=== PATIENT | female | born 1950 | race Caucasian/White ===

== ENCOUNTER 2016-10-16 12:38 | Emergency (ER) | payer OTHER ==
[~2016-10-16] VITALS: Ht 162.6 cm; Wt 111.1 kg
[~2016-10-16 12:38] MED LIST: ALB5IS NEB; Atorvastatin Calcium PO; BENA20TA4 PO; ESCI10TA PO; FURO40TA4 PO; GABA-498 PO; HYDR-2652 PO; MET50T PO; NOR10T PO; SIMV20TA90 PO
[2016-10-16 13:48] LABS: Basophils # (auto) 0.1 uL; Basophils % (auto) 0.6 % (0.0-2.0); DEFINITIVE VIEW TRANSMISSION; Eosinophils # (auto) 0.1 uL; Eosinophils % (auto) 1.5 % (0.0-7.0); Hematocrit 32.6 % (36.0-46.0); Hemoglobin 10.4 g/dL (12.2-16.2); Lymphocytes # (auto) 0.8 uL; Mean Corpuscular Hemoglobin 25.6 pg (28.0-32.0); Mean Platelet Volume 9.4 fL (7.4-10.4); Monocytes # (auto) 0.9 uL; Monocytes % (auto) 10.3 % (0.0-12.0); Neutrophils # (auto) 6.8 uL; Neutrophils % (auto) 78.6 % (37.0-80.0); Platelet Count (auto) 287 10^3/uL (140-450); Red Cell Distribution Width 17.2 % (11.6-16.0); White Blood Cell 8.6 10^3/uL (4.4-10.8)
[2016-10-16 14:01] LABS: Albumin 3.1 g/dL (3.4-5.0); BUN/Creatinine Ratio 27.9; Bilirubin, Total 0.7 mg/dL (0.2-1.0); Calcium 9.5 mg/dL (8.5-10.1); Magnesium 2.1 mg/dL (1.6-2.6); Potassium 4.5 mmol/L (3.5-5.1); Total Protein 7.2 g/dL (6.4-8.2)
[2016-10-16] MEDS ORDERED: CEPHALEXIN 250 MG CAP PO ONE (17:00)
[2016-10-16] MEDS ORDERED: HYDROcodone-ACET 5/325MG TAB PO ONE (17:00)
[2016-10-16 18:02] VITALS: BP 146/75
== END 2016-10-16 18:34 | disposition home or self-care (01) ==
LOC: ER 12:42
DX: J44.9 Chronic obstructive pulmonary disease, unspecified (principal); E46 Unspecified protein-calorie malnutrition; I48.91 Unspecified atrial fibrillation; I13.0 Hypertensive heart and chronic kidney disease with heart failure and stage 1 through stage 4 chronic kidney disease, or unspecified chronic kidney disease; N18.9 Chronic kidney disease, unspecified; I50.9 Heart failure, unspecified; Z90.49 Acquired absence of other specified parts of digestive tract; Z90.710 Acquired absence of both cervix and uterus; Z90.89 Acquired absence of other organs
CPT/HCPCS: 36415; 71020; 80053; 83735; 84484; 85025; 93005

== ENCOUNTER → 2016-12-17 | Outpatient (CLI) | payer OTHER ==
[2016-12-17 12:20] LABS: Partial Thromboplastin Time 27.5 sec (22.64-33.71)
[2016-12-17 12:39] LABS: INR 1.45 (0.9-1.15); Prothrombin Time 14.9 sec (9.37-12.3)
[2016-12-17 13:00] LABS: BUN/Creatinine Ratio 20.2; Bilirubin, Total 0.8 mg/dL (0.2-1.0); Calcium 9.5 mg/dL (8.5-10.1); Potassium 3.1 mmol/L (3.5-5.1); Total Protein 7.5 g/dL (6.4-8.2); Uric Acid 9.2 mg/dL (2.6-6.0)
== END | disposition home or self-care (01) ==
LOC: LAB 11:21
PROVIDERS: ATTEND Internal Medicine
DX: E11.9 Type 2 diabetes mellitus without complications (principal); I10 Essential (primary) hypertension; M10.9 Gout, unspecified; M06.9 Rheumatoid arthritis, unspecified
CPT/HCPCS: 36415; 80053; 83036; 84439; 84443; 84550; 85610; 85730; 86141

== ENCOUNTER → 2016-12-24 | Outpatient (CLI) | payer OTHER ==
[2016-12-24 10:47] LABS: Partial Thromboplastin Time 27.5 sec (22.64-33.71)
[2016-12-24 11:02] LABS: INR 2.04 (0.9-1.15)
== END | disposition home or self-care (01) ==
LOC: LAB 09:33
PROVIDERS: ATTEND Internal Medicine
DX: I48.91 Unspecified atrial fibrillation (principal); E78.5 Hyperlipidemia, unspecified
CPT/HCPCS: 36415; 84132; 85610; 85730

== ENCOUNTER 2017-01-03 00:46 | Inpatient (IN) | payer OTHER ==
[2017-01-03] VITALS (10 sets, daily range): BP systolic 51–111; BP diastolic 25–72
[~2017-01-03] VITALS: Ht 165.1 cm; Wt 124.7 kg
[2017-01-03] MEDS ORDERED: NITROGLYCERIN 0.4 MG SL TAB SL ONE (01:15)
[2017-01-03] MEDS ORDERED: FUROSEMIDE 40 MG/4 ML VIAL IV ONE ×3 (01:15→06:30)
[2017-01-03 01:38] LABS: Urine RBC None Seen /hpf (0 - 4)
[2017-01-03 01:49] LABS: Urine Bilirubin Negative (Negative); Urine Blood Negative /uL (Negative); Urine Color Yellow (Yellow); Urine Glucose Normal (Normal); Urine Ketone Negative (Negative); Urine Urobilinogen Normal (Negative)
[2017-01-03 01:51] LABS: Urine Nitrite POSITIVE (Negative)
[2017-01-03 02:07] LABS: DEFINITIVE VIEW TRANSMISSION; Mean Corpuscular Hemoglobin 23.2 pg (28.0-32.0); Mean Corpuscular Hgb Conc. 31.1 g/dL (32.0-36.0); Mean Corpuscular Volume 74.5 fL (80.0-100.0); Mean Platelet Volume 10.1 fL (7.4-10.4); Platelet Count (auto) 317 10^3/uL (140-450); Red Cell Distribution Width 17.3 % (11.6-16.0); SUSPECT VIEW TRANSMISSION; White Blood Cell 12.5 10^3/uL (4.4-10.8)
[2017-01-03 02:15] LABS: Partial Thromboplastin Time 29.2 sec (22.64-33.71)
[2017-01-03 02:19] LABS: INR 2.41 (0.9-1.15); Prothrombin Time 24.8 sec (9.37-12.3)
[2017-01-03 02:21] LABS: Anion Gap 12 (5-15); Aspartate Aminotransferase 25 U/L (15-37); BUN/Creatinine Ratio 18.9; Blood Urea Nitrogen 25 mg/dL (7-18); Calcium 8.3 mg/dL (8.5-10.1); Carbon Dioxide 28 mmol/L (21-32); Chloride 103 mmol/L (98-107); GFR African American 52 mL/min; GFR Non-African American 43 mL/min; Glucose 140 mg/dL (74-106); Potassium 3.3 mmol/L (3.5-5.1); Sodium 143 mmol/L (136-145)
[2017-01-03 02:22] LABS: Lactic Acid 3.5 mmol/L (0.4-2.0)
[2017-01-03 02:28] LABS: Metamyelocytes % 0; Myelocytes % 0; Promyelocytes % 0; Reactive Lymphocytes 0
[2017-01-03 02:30] LABS: Alkaline Phosphatase 179 U/L (45-117); Bilirubin, Total 0.7 mg/dL (0.2-1.0); REFLEX LACTIC ACID YES OR NO YES; Total Protein 6.9 g/dL (6.4-8.2)
[2017-01-03 02:50] LABS: Hypersegmented Neutrophils Present
[2017-01-03 02:51] LABS: Anisocytosis Slight; Microcytosis Moderate; Ovalocytes MODERATE; Platelet Estimate Adequate
[2017-01-03 02:57] LABS: Temperature: 21.6 C (20.0-25.0)
[2017-01-03] MEDS ORDERED: cefTRIAXone 1GM/50ML D5W 50 ML IV ONE (04:00)
[2017-01-03] MEDS ORDERED: ONDANSETRON HCL 4 MG/2 ML VIAL IV ONE (04:00)
[2017-01-03 04:01] LABS: Lactic Acid 4.9 mmol/L (0.4-2.0)
[2017-01-03 04:04] LABS: REFLEX LACTIC ACID YES OR NO NO
[2017-01-03] MEDS ORDERED: LORazepam 2MG/ML-1ML VIAL IV ONE (04:45)
[2017-01-03] MEDS ORDERED: SUCCINYLCHOLINE CHLORIDE 20 MG/ML 10ML VIAL IV ONE ×2 (06:06→06:23)
[2017-01-03] MEDS ORDERED: ETOMIDATE (2MG/ML) 20ML VIAL IV ONE ×2 (06:06→06:23)
[2017-01-03] MEDS: MIDAZOLAM DRIP 100 mg/100mL NS 100 ML IV SCH ×2 (06:20→23:55)
[2017-01-03] MEDS ORDERED: MIDAZOLAM DRIP 100 mg/100mL NS 100 ML IV ONE (06:27)
[2017-01-03] MEDS ORDERED: MIDAZOLAM DRIP 100 mg/100mL NS 100 ML IV SCH (06:27)
[2017-01-03] MEDS ORDERED: MORPHINE SULF INJ 2 MG/ML SYRINGE 1ML IV PRN ×3 (06:30)
[2017-01-03] MEDS ORDERED: LORazepam 2MG/ML-1ML VIAL IV PRN (06:30)
[2017-01-03] MEDS ORDERED: ACETAMINOPHEN 325 MG TAB PO PRN (06:30)
[2017-01-03] MEDS ORDERED: ONDANSETRON HCL 4 MG/2 ML VIAL IV PRN (06:30)
[2017-01-03] MEDS ORDERED: NITROGLYCERIN 0.4 MG SL TAB SL PRN (06:30)
[2017-01-03] MEDS ORDERED: DEXTROSE (50%) 50ML SYRG IV PRN (06:30)
[2017-01-03] MEDS ORDERED: NOREPINEPHRINE BITARTRATE 250 ML IV ONE (06:57)
[2017-01-03] MEDS: NOREPINEPHRINE BITARTRATE 250 ML IV SCH ×2 (07:10→16:30)
[2017-01-03] MEDS ORDERED: methylPREDNISolone SOD SUCC 125 MG/2 ML VL IV ONE (08:15)
[2017-01-03] MEDS ORDERED: diphenhdrAMINE HCL 50 MG/1 ML VL IV ONE (08:15)
[2017-01-03] MEDS ORDERED: cefTRIAXone 1GM/50ML D5W 50 ML IV SCH (09:00)
[2017-01-03] MEDS ORDERED: SODIUM CHLORIDE 0.9% 1,000 ML IV ONE ×2 (09:45→22:30)
[2017-01-03] MEDS ORDERED: PIPERACILLIN-TAZOB 3.375GM 100 ML IV ONE (09:45)
[2017-01-03] MEDS: POTASSIUM CHL 20MEQ/100ML 100 ML IV SCH ×2 (09:51→11:30)
[2017-01-03] MEDS ORDERED: PANTOPRAZOLE SODIUM 40 MG/10 ML VIAL IV SCH ×2 (10:00)
[2017-01-03] MEDS ORDERED: FAMOTIDINE (10MG/ML) 2ML VL IV SCH (10:00)
[2017-01-03] MEDS ORDERED: ENOXAPARIN SOD 40 MG/0.4 ML SYRINGE SC SCH (10:00)
[2017-01-03] MEDS: fentaNYL Drip 2500mCg/250mlNS 250 ML IV SCH (10:04)
[2017-01-03] MEDS: ALBUMIN 25% 100 ML IV SCH ×4 (10:06→21:32)
[2017-01-03 10:08] LABS: Magnesium 1.7 mg/dL (1.6-2.6); Phosphorus 2.8 mg/dL (2.5-4.90)
[2017-01-03] MEDS ORDERED: ACETAMINOPHEN 650 mg PER 20 mL UD ONE (10:12)
[2017-01-03] MEDS: AZITHROMYCIN 500MG/D5W 250ML 250 ML IV SCH (10:14)
[2017-01-03] MEDS ORDERED: PHENYLEPHRINE INJ 40 MG in SODIUM CHL 0.9% 250 ML IV SCH (10:30)
[2017-01-03] MEDS: PHENYLEPHRINE INJ 20 MG in SODIUM CHL 0.9% 250 ML IV SCH ×2 (11:15→16:40)
[2017-01-03] MEDS: LINEZOLID 600MG/300ML 300 ML IV SCH ×2 (12:00→21:42)
[2017-01-03] MEDS: PIPERACILLIN-TAZOB 3.375GM 100 ML IV SCH ×2 (12:27→19:03)
[2017-01-03] MEDS: ACCU-CHEK COMFORT CURVE STRIP VI SCH ×2 (12:35→18:54)
[2017-01-03] MEDS: InsuLIN REG 1unit/0.01ml Soln (100units/ml) SC SCH ×2 (12:41→18:54)
[2017-01-03 17:42] LABS: BUN/Creatinine Ratio 12.5; Calcium 7.8 mg/dL (8.5-10.1); Potassium 4.2 mmol/L (3.5-5.1)
[2017-01-03] MEDS ORDERED: BUMETANIDE (0.25 MG/ML) INJ 10ML IV ONE (17:45)
[2017-01-03] MEDS: IPRATROPIUM BROM 0.5 MG/2.5ML INH SOL NEB SCH ×2 (18:00→21:52)
[2017-01-03] MEDS ORDERED: PHENYLEPHRINE IV 250 ML IV ONE (21:01)
[2017-01-03] MEDS: PANTOPRAZOLE SODIUM 40 MG/10 ML VIAL IV SCH (21:42)
[2017-01-03] MEDS ORDERED: VASOPRESSIN 20 UNIT/ML ONE ×2 (23:24→23:36)
[2017-01-03] MEDS: VASOPRESSIN 50 UNITS in SODIUM CHL 0.9% 247.5 ML IV SCH (23:50)
[2017-01-04] VITALS (8 sets, daily range): BP systolic 88–122; BP diastolic 43–83
[2017-01-04] MEDS: MIDAZOLAM DRIP 100 mg/100mL NS 100 ML IV SCH ×5 (00:25→04:18)
[2017-01-04] MEDS: ACCU-CHEK COMFORT CURVE STRIP VI SCH ×2 (00:27→06:15)
[2017-01-04] MEDS: PIPERACILLIN-TAZOB 3.375GM 100 ML IV SCH ×2 (00:29→06:44)
[2017-01-04] MEDS: VASOPRESSIN 50 UNITS in SODIUM CHL 0.9% 247.5 ML IV SCH ×4 (00:31→07:00)
[2017-01-04] MEDS: HYDROCORTISONE SOD SUCC 100 MG/2ML INJ VIAL IV SCH ×2 (00:49→06:15)
[2017-01-04] MEDS: InsuLIN REG 1unit/0.01ml Soln (100units/ml) SC SCH ×2 (00:56→06:23)
[2017-01-04] MEDS ORDERED: EPINEPHrine HCL INJECTION 4 MG in D5W 5% 250 ML IV SCH (01:15)
[2017-01-04] MEDS: IPRATROPIUM BROM 0.5 MG/2.5ML INH SOL NEB SCH ×3 (02:00→10:00)
[2017-01-04] MEDS: PHENYLEPHRINE INJ 20 MG in SODIUM CHL 0.9% 250 ML IV SCH ×2 (03:07→05:03)
[2017-01-04] MEDS: NOREPINEPHRINE BITARTRATE 250 ML IV SCH ×2 (03:20→07:00)
[2017-01-04] MEDS: fentaNYL Drip 2500mCg/250mlNS 250 ML IV SCH (03:43)
[2017-01-04] MEDS ORDERED: PHENYLEPHRINE IV 250 ML IV ONE (04:43)
[2017-01-04] MEDS ORDERED: EPINEPHrine HCL 250 ML IV ONE (05:48)
[2017-01-04] MEDS: ALBUMIN 25% 100 ML IV SCH (06:14)
[2017-01-04 06:44] LABS: DEFINITIVE VIEW TRANSMISSION; Hematocrit 28.1 % (36.0-46.0); Hemoglobin 8.4 g/dL (12.2-16.2); Mean Corpuscular Hemoglobin 23.8 pg (28.0-32.0); Mean Corpuscular Volume 79.2 fL (80.0-100.0); Mean Platelet Volume 10.2 fL (7.4-10.4); Platelet Count (auto) 461 10^3/uL (140-450); Red Cell Distribution Width 18.3 % (11.6-16.0); SUSPECT VIEW TRANSMISSION
[2017-01-04 06:48] LABS: Partial Thromboplastin Time 48.6 sec (22.64-33.71)
[2017-01-04 06:55] LABS: White Blood Cell 36.8 10^3/uL (4.4-10.8)
[2017-01-04 06:56] LABS: Metamyelocytes % 0; Myelocytes % 0; Promyelocytes % 0; Reactive Lymphocytes 0
[2017-01-04 07:05] LABS: BUN/Creatinine Ratio 10.9; Bilirubin, Total 1.5 mg/dL (0.2-1.0); Calcium 7.3 mg/dL (8.5-10.1); Phosphorus 8.1 mg/dL (2.5-4.90); Total Protein 6.4 g/dL (6.4-8.2); Uric Acid 6.8 mg/dL (2.6-6.0)
[2017-01-04 07:07] LABS: INR 3.59 (0.9-1.15)
[2017-01-04 07:15] LABS: Potassium 5.6 mmol/L (3.5-5.1)
[2017-01-04] MEDS: ALBUTEROL SULF 2.5 MG/0.5ML(0.5%) NEB SOLN NEB PRN ×2 (07:50→10:39)
[2017-01-04 07:57] LABS: Anisocytosis Slight; Hypochromia Slight; Large Platelets FEW; Platelet Estimate Adequa
[2017-01-04] MEDS ORDERED: SODIUM BICARBONATE 8.4 % INJ 50ML VIAL IV ONE (08:15)
[2017-01-04] MEDS ORDERED: InsuLIN REG 1unit/0.01ml Soln (100units/ml) IV ONE (08:30)
[2017-01-04] MEDS ORDERED: DEXTROSE (50%) 50ML SYRG IV ONE (08:30)
[2017-01-04] MEDS ORDERED: PHENYLEPHRINE INJ 40 MG in SODIUM CHL 0.9% 250 ML IV SCH (09:11)
[2017-01-04] MEDS: PANTOPRAZOLE SODIUM 40 MG/10 ML VIAL IV SCH (10:08)
[2017-01-04] MEDS: LINEZOLID 600MG/300ML 300 ML IV SCH (10:14)
[2017-01-04] MEDS: AZITHROMYCIN 500MG/D5W 250ML 250 ML IV SCH (10:23)
[2017-01-04] MEDS ORDERED: SODIUM BICARBONATE 50ML VIAL 50 ML in SOD CHL 0.45% 1,000 ML IV SCH (10:30)
[2017-01-04] MEDS ORDERED: LORazepam 2MG/ML-1ML VIAL ONE (11:13)
[2017-01-04] MEDS ORDERED: PIPERACILLIN-TAZOB 2.25GM 50 ML IV SCH (14:00)
== END 2017-01-04 14:48 | disposition expired | DRG 871 ==
LOC: EDUNIT# 00:46 → EDBD 00:46 → ER 01:21 → TELE 01:22
PROVIDERS: ADMIT Nurse Practitioner; ATTEND Internal Medicine
PROC: 02HV33Z Insertion of Infusion Device into Superior Vena Cava, Percutaneous Approach (ICD-10-PCS; principal; 2017-01-03)
PROC: 5A1945Z Respiratory Ventilation, 24-96 Consecutive Hours (ICD-10-PCS; 2017-01-03)
PROC: 0BH17EZ Insertion of Endotracheal Airway into Trachea, Via Natural or Artificial Opening (ICD-10-PCS; 2017-01-03)
DX: A41.9 Sepsis, unspecified organism (principal); I50.43 Acute on chronic combined systolic (congestive) and diastolic (congestive) heart failure; J18.9 Pneumonia, unspecified organism; R65.21 Severe sepsis with septic shock; J96.21 Acute and chronic respiratory failure with hypoxia; N17.0 Acute kidney failure with tubular necrosis; K72.00 Acute and subacute hepatic failure without coma; I13.0 Hypertensive heart and chronic kidney disease with heart failure and stage 1 through stage 4 chronic kidney disease, or unspecified chronic kidney disease; J44.0 Chronic obstructive pulmonary disease with (acute) lower respiratory infection; D68.9 Coagulation defect, unspecified; E44.0 Moderate protein-calorie malnutrition; E87.2 Acidosis; Z68.42 Body mass index [BMI] 45.0-49.9, adult; Z51.5 Encounter for palliative care; E66.01 Morbid (severe) obesity due to excess calories; E11.22 Type 2 diabetes mellitus with diabetic chronic kidney disease; F32.9 Major depressive disorder, single episode, unspecified; D50.9 Iron deficiency anemia, unspecified; E87.6 Hypokalemia; E11.21 Type 2 diabetes mellitus with diabetic nephropathy; F41.9 Anxiety disorder, unspecified; N18.3 Chronic kidney disease, stage 3 (moderate); I48.91 Unspecified atrial fibrillation; Z82.49 Family history of ischemic heart disease and other diseases of the circulatory system; Z90.49 Acquired absence of other specified parts of digestive tract; Z90.89 Acquired absence of other organs; Z90.710 Acquired absence of both cervix and uterus; Z84.89 Family history of other specified conditions; Z80.9 Family history of malignant neoplasm, unspecified; Z88.5 Allergy status to narcotic agent; Z88.8 Allergy status to other drugs, medicaments and biological substances; Z91.09 Other allergy status, other than to drugs and biological substances; Z99.81 Dependence on supplemental oxygen
CPT/HCPCS: 31500; 36415; 36556; 36600; 51702; 71010; 71250; 74176; 80048; 80053; 81001; 82550; 82805; 82962; 83605; 83735; 83880; 84100; 84443; 84484; 84550; 85007; 85027; 85379; 85610; 85730; 87040; 87070; 87077; 87186; 87205; 93005; 94002; 94003; 94640; 96365; 96366; 96372; 96375; 96376; 99291; C9113; J0171; J0330; J0696; J1815; J2405; J2543; J3010; J3480; J3490; J7060